=== PATIENT | female | born 1985 | race Caucasian/White ===

== ENCOUNTER 2017-03-30 20:17 | Emergency (ER) | payer OTHER ==
[2017-03-30 20:52] VITALS: RESP 18
--- NOTE | 2017-03-30 21:42 | XR ---
EXAMINATION TYPE: XR abdomen acute w cxr DATE OF EXAM: 03/30/2017 COMPARISON: NONE HISTORY: Bloating and constipation for 9 days TECHNIQUE: 4 views FINDINGS: Heart and mediastinum are normal. Lungs are clear. Diaphragm is normal. Bowel gas pattern is normal. There is no sign of intestinal obstruction or pneumoperitoneum. Fecal pattern is normal. There are no pathologic calcifications over the kidneys. CONCLUSION: Normal exam. Nonacute abdomen. Normal chest.
[2017-03-30] MEDS ORDERED: LACTULOSE 20 GM/30 ML CUP PO ONE (21:48)
[2017-03-30] MEDS ORDERED: BISACODYL 10 MG SUPP RECTAL STA (21:48)
--- NOTE | 2017-03-30 21:49 | ED ---
General Adult HPI - General Chief complaint: Abdominal Pain Stated complaint: Abd Pain Time Seen by Provider: 03/30/17 20:58 Source: patient Mode of arrival: ambulatory Limitations: no limitations - History of Present Illness Initial comments: Barbie Lee is a 32-year-old female with a past medical history of alcohol abuse who is currently in rehab. She presents to the emergency department today for evaluation of abdominal distention and constipation. Patient reports that she's been sober from alcohol for 6 months, she recently had one drink while in a long-term house and was referred back to rehab. Patient reports that she's been back in rehab for couple of weeks it has been sober. Patient reports that for the past 12 days she has been very constipated. She reports that she has not had a normal large bowel movement in 12 days. She reports that she was evaluated at an outside hospital on Tuesday, all of her labs were normal and her x-ray revealed diffuse stool throughout the colon. She was given MiraLAX and discharged home. Patient reports that on Tuesday she also drink Epsom salts and water and she did have a small bowel movement but she didn 't feel any relief. Patient reports that since that time she has been drinking prune juice and MiraLAX, she states she is beginning to feel more bloated and more pressure in her abdomen but does not feel like she has had an appropriate bowel movement. Patient reports that her last menses was last week, and addition she has her tube site and there is no chance she is . She denies any stabbing abdominal pain. She denies any nausea or vomiting. She does report decreased appetite which she attributes to abdominal distention. She is no history of irritable or inflammatory bowel. She has no known family history of either. She does report that her grandmother at the age of 45 from some type of bowel disease. Patient reports tubal ligation but no other intra-abdominal surgeries. She has no history of bowel obstruction. - Related Data Home Medications Medication Instructions Recorded Confirmed Docusate [Colace] 100 mg PO BID 03/30/17 03/30/17 Methadone HCl [Methadone Intensol] 90 mg PO DAILY 03/30/17 03/30/17 Multivitamins, Thera [Multivitamin 1 tab PO DAILY 03/30/17 03/30/17 (formulary)] Polyethylene Glycol 3350 [Miralax] 17 gm PO TID 03/30/17 03/30/17 QUEtiapine [SEROquel] 50 mg PO HS 03/30/17 03/30/17 buPROPion [Wellbutrin] 100 mg PO BID 03/30/17 03/30/17 Allergies Allergy/AdvReac Type Severity Reaction Status Date / Time No Known Allergies Allergy Verified 03/30/17 20:57 Review of Systems ROS Statement: Those systems with pertinent positive or pertinent negative responses have been documented in the HPI. ROS Other: All systems not noted in ROS Statement are negative. Respiratory: Denies: cough Cardiovascular: Denies: chest pain Endocrine: Denies: fatigue Gastrointestinal: Reports: constipation. Denies: nausea, vomiting, diarrhea Genitourinary: Denies: urgency, dysuria Musculoskeletal: Denies: back pain Skin: Denies: rash, lesions Neurological: Denies: headache Hematological/Lymphatic: Denies: easy bleeding, easy bruising Past Medical History Past Medical History: No Reported History History of Any Multi-Drug Resistant Organisms: None Reported Past Surgical History: Tubal Ligation Past Psychological History: Depression Smoking Status: Current every day smoker Past Alcohol Use History: None Reported Past Drug Use History: Heroin General Exam Limitations: no limitations General appearance: alert, in no apparent distress Head exam: Present: atraumatic, normocephalic Eye exam: Present: normal appearance, PERRL ENT exam: Present: normal exam Neck exam: Present: normal inspection Respiratory exam: Present: normal lung sounds bilaterally Cardiovascular Exam: Present: regular rate GI/Abdominal exam: Present: soft, distended, normal bowel sounds. Absent: tenderness, guarding, rebound, rigid, diminished bowel sounds, hyperactive bowel sounds, hypoactive bowel sounds, organomegaly, mass, bruit, pulsatile mass , hernia Rectal exam: Present: deferred Extremities exam: Present: normal inspection Back exam: Present: normal inspection Neurological exam: Present: alert, oriented X3 Psychiatric exam: Present: normal affect Skin exam: Present: warm, dry Course Vital Signs 03/30/17 03/30/17 20:50 22:44 Temperature 97.5 F L 98 F Pulse Rate 84 77 Respiratory 18 18 Rate Blood Pressure 147/79 139/79 O2 Sat by Pulse 97 97 Oximetry Medical Decision Making - Medical Decision Making Patient was seen and examined, vital signs reviewed History obtained from patient At this time the patient's declining blood work is she says all of her blood work was normal on Tuesday. She states that she just wants something to help her have a bowel movement. Patient will agree to a x-ray of the abdomen to evaluate for stool burning. Patient states that she has had a tubal ligation, and addition her last menses ended last week and there is no possibility of her being . X-ray with stool throughout the colon, normal x-ray Dulcolax suppository was ordered in addition to lactulose Patient tolerated the Dulcolax suppository and lactulose. I advised her to increase her water intake and to continue normal activity. I advised her to follow up with regular doctor for reevaluation and to discuss referral to gastroenterology for colonoscopy. All questions pertaining to care were answered to the best my ability and the patient was discharged home in stable condition. Disposition Clinical Impression: Abdominal pain Disposition: HOME SELF-CARE Condition: Good Instructions: Constipation (ED), High Fiber Diet (ED), Fleet Enema (ED) Referrals: Nonstaff,Physician [Primary Care Provider] - 1-2 days Time of Disposition: 22:26
[2017-03-30 22:45] VITALS: BP 139/79; PULSE 77; TEMP 98
== END 2017-03-30 22:45 | disposition home or self-care (01) ==
LOC: EC 20:17
DX: R10.9 Unspecified abdominal pain (principal); F32.9 Major depressive disorder, single episode, unspecified; F17.200 Nicotine dependence, unspecified, uncomplicated; Z98.51 Tubal ligation status; Z79.891 Long term (current) use of opiate analgesic; Z79.899 Other long term (current) drug therapy
CPT/HCPCS: 74022; 99284

== ENCOUNTER → 2018-03-14 | Outpatient (CLI) | payer OTHER ==
[2018-03-14 09:06] VITALS: BP 132/62; PULSE 78; RESP 18; TEMP 98.2; BMI 30.2
--- NOTE | 2018-03-14 10:13 | P.HPOB ---
History of Present Illness H&P Date: 03/14/18 Chief Complaint: The patient is here for her routine gynecologic exam. This is a 33-year-old with an LMP of 02/06/2018. The patient is here to establish with this office. She states that has been about 3 years since her last pelvic exam. She states she has noticed intermittent postcoital vaginal bleeding during the past 2 months. She denies ever having this before 2 months ago. She has been with her current sexual partner for about 7 months. She denies any pain with sexual intercourse. She states the bleeding can be variable. One time it was fairly heavy, and at other times it is very light. She has only noticed this with one sexual position which has been with the rear entry when she is bent over. She denies any significant vaginal discharge, but has noticed a slight vaginal odor recently. She denies any vulvar lesions. She states she tends to notice the bleeding after sexual intercourse near or just after her menstrual period. Review of Systems She believes she has gained about 30 pounds while she has been on methadone. She states she has been on methadone for about 4 years. She attributes the weekend to the methadone use. She denies respiratory, cardiac, or G.I. problems. 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 She denies any other STDs. History of Any Multi-Drug Resistant Organisms: None Reported Past Surgical History: Tubal Ligation () Past Psychological History: Depression Smoking Status: Current every day smoker (Half a pack per day) Past Alcohol Use History: None Reported Past Drug Use History: Cocaine, Heroin, Opiates Additional Drug Use History / Comment(s): She had a history of cocaine in opiate abuse and has been in rehab since 2017. She states she has been drug- free since 2017. She currently lives in recovery housing. She is single and has been with her boyfriend since 2018. She works at [employer]. - Past Family History Mother Additional Family Medical History / Comment(s): History of drug addiction. Great-grandmother had diabetes. Father Additional Family Medical History / Comment(s): History of drug addiction. Medications and Allergies Home Medications Medication Instructions Recorded Confirmed Type Methadone HCl [Methadone Intensol] 90 mg PO DAILY 03/30/17 03/14/18 History Allergies Allergy/AdvReac Type Severity Reaction Status Date / Time No Known Allergies Allergy Verified 03/14/18 08:59 Exam Vital Signs Temp Pulse Resp BP Pulse Ox 03/14/18 09:01 98.2 F 78 18 132/62 99 Intake and Output 03/13/18 03/14/18 03/14/18 22:59 06:59 14:59 Other: Weight 79.832 kg Height 5'4", weight 176 pounds, BMI 30.2. This is a well-developed well-nourished white female who is alert and oriented times 3 in no acute distress. HEENT: Within normal limits. NECK: Supple without mass or thyromegaly. CHEST AND LUNGS: Clear to auscultation. HEART: Regular rate and rhythm. BREASTS: Are without mass or discharge. AXILLARY EXAM: Negative for adenopathy. BACK: Negative for CVA tenderness. ABDOMEN: Soft, nontender, without palpable masses. PELVIC EXAM: Normal external genitalia. Cervix appears normal but is slightly friable upon doing the Pap smear. There is a mild creamy discharge which is slightly yellow without noticeable odor. There is no cervical motion tenderness. There are no vaginal lesions. There is no evidence of prolapse. The uterus is midposition, nongravid size and nontender. There are no palpable adnexal masses or tenderness. RECTAL EXAM: rectal exam was refused by the patient. EXTREMITIES: Nontender. IMPRESSION: 1. 33-year-old female who is status post tubal sterilization with probable bacterial vaginosis with slight discharge and complaints of slight vaginal odor. 2. Intermittent postcoital vaginal bleeding with one particular sexual position times 2 months. This may be related to bacterial vaginosis or other cervicitis. PLAN: 1. Pap smear was performed. 2. Self breast awareness was discussed with the patient. 3. GC and Chlamydia testing was obtained from the cervix. 4. The patient will be treated for suspected bacterial vaginosis. Metronidazole 500 mg PO BID times 7 days. The electronic prescription will be sent to [facility] on . 5. If the above testing is unremarkable and she continues to have postcoital spotting, consider pelvic ultrasound and possible referral for additional evaluation such as a hysteroscopy. 6. She will return in one year and PRN.
[2018-03-15 14:31] LABS: C. trachomatis,PCR Negative (Neg,Equiv); Chlamydia trachomatis Source Cervix; N. gonorrhoeae,PCR Negative (Neg,Equiv); Neisseria Source Cervix
== END | disposition home or self-care (01) ==
LOC: WWCWWP 08:33
PROVIDERS: ATTEND Obstetrics & Gynecology
DX: N93.9 Abnormal uterine and vaginal bleeding, unspecified (principal); Z11.9 Encounter for screening for infectious and parasitic diseases, unspecified
CPT/HCPCS: 87491; 87591

== ENCOUNTER → 2020-06-24 | Outpatient (CLI) | payer OTHER ==
--- NOTE | 2020-06-24 15:37 | MR ---
MR brain without contrast HISTORY: Migraine headache with aura Multiplanar multisequence imaging through the brain, no comparisons There is no restricted diffusion. There is no hemorrhage or hydrocephalus. Corpus callosum, pituitary , cervical medullary junction, cerebellopontine angles are unremarkable. There is some scattered hype rintensities within the deep white matter on inversion recovery T2-weighted sequences, approximately 3-5 lesions are present, largest measures only 3 mm. Some mucosal thickening present within the front al sinus, ethmoid air cells. Orbits show symmetric appearance. There is a focus of hyperintensity adj acent to the right temporomandibular joint showing intermediate signal on inversion recovery, increas ed signal on T2-weighted sequences measuring approximately 6 mm, axial image 5 of questionable clinic al significance, possibly related to the joint at IMPRESSION: Nonspecific white matter demyelination could be related to migraine headaches, nonspecifi c. Mild sinus disease. Additional findings above.
== END | disposition home or self-care (01) ==
LOC: RADMRIMAIN 14:42
PROVIDERS: ATTEND Psychiatry & Neurology Neurology
DX: G43.109 Migraine with aura, not intractable, without status migrainosus (principal); R90.82 White matter disease, unspecified
CPT/HCPCS: 70551

== ENCOUNTER 2020-09-27 21:16 | Emergency (ER) | payer OTHER ==
[2020-09-27 21:30] VITALS: BP 137/69; PULSE 73; RESP 20; TEMP 98.7
[2020-09-27] MEDS ORDERED: FAMOTIDINE 20 MG TAB PO STA (21:50)
[2020-09-27] MEDS ORDERED: hydrOXYzine HCL 25 MG TAB PO STA (21:50)
[2020-09-27] MEDS ORDERED: DEXAMETHASONE SOD PHOSPHATE 10 MG/ML 1 ML VIAL IM STA (21:50)
--- NOTE | 2020-09-27 21:52 | ED ---
Skin/Abscess/FB HPI - General Chief complaint: Skin/Abscess/Foreign Body Stated complaint: Bug bite Time Seen by Provider: 09/27/20 21:43 Source: patient, RN notes reviewed, old records reviewed Mode of arrival: wheelchair Limitations: no limitations - History of Present Illness Initial comments: This is a 35-year-old female who presents today for evaluation of significant swelling pain and itchiness of the right foot. Patient states he wears sandals and was unsure whether or not she pressed up against something that causes reaction where she was bit by some sort of bug. Pain is on the top of her foot with swelling and erythema and some blistering now. Patient states the blistering has caused pain. Otherwise no complaints MD complaint: rash (2 right foot) -: days(s) (3) Tetanus Up to Date: no Location: R foot Severity: moderate Severity scale (1-10): 7 Quality: aching Consistency: constant Improves with: none Worsens with: none Context: witnessed insect bite Associated symptoms: itching Treatments Prior to Arrival: none - Related Data Home Medications Medication Instructions Recorded Confirmed Methadone HCl [Methadone Intensol] 90 mg PO DAILY 03/30/17 03/14/18 Previous Rx's Medication Instructions Recorded metroNIDAZOLE [Flagyl] 500 mg PO BID 7 Days #14 tab 03/14/18 Cephalexin [Keflex] 500 mg PO Q6HR #28 cap 09/27/20 hydrOXYzine HCL [Atarax] 25 mg PO TID PRN #15 tab 09/27/20 predniSONE 50 mg PO DAILY #5 tab 09/27/20 Allergies Allergy/AdvReac Type Severity Reaction Status Date / Time No Known Allergies Allergy Verified 09/27/20 21:29 Review of Systems ROS Statement: Those systems with pertinent positive or pertinent negative responses have been documented in the HPI. ROS Other: All systems not noted in ROS Statement are negative. 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 She denies any other STDs. COVID 04/06 History of Any Multi-Drug Resistant Organisms: None Reported Past Surgical History: Tubal Ligation Past Psychological History: Depression Smoking Status: Never smoker Past Alcohol Use History: None Reported Past Drug Use History: Cocaine, Heroin, Opiates - Past Family History Mother Additional Family Medical History / Comment(s): History of drug addiction. Great-grandmother had diabetes. Father Additional Family Medical History / Comment(s): History of drug addiction. General Exam Limitations: no limitations General appearance: alert, in no apparent distress Head exam: Present: atraumatic, normocephalic, normal inspection Eye exam: Present: normal appearance, PERRL, EOMI. Absent: scleral icterus, conjunctival injection, periorbital swelling ENT exam: Present: normal exam, mucous membranes moist Neck exam: Present: normal inspection. Absent: tenderness, meningismus, lymphadenopathy Respiratory exam: Present: normal lung sounds bilaterally. Absent: respiratory distress, wheezes, rales, rhonchi, stridor Cardiovascular Exam: Present: regular rate, normal rhythm, normal heart sounds. Absent: systolic murmur, diastolic murmur, rubs, gallop, clicks GI/Abdominal exam: Present: soft, normal bowel sounds. Absent: distended, tenderness, guarding, rebound, rigid Extremities exam: Present: normal inspection, full ROM, normal capillary refill, other (Right foot does have swelling of all toes, middle toe does have blistering bullous reaction, no tenderness). Absent: tenderness, pedal edema, joint swelling, calf tenderness Back exam: Present: normal inspection Neurological exam: Present: alert, oriented X3, CN II-XII intact Psychiatric exam: Present: normal affect, normal mood Skin exam: Present: warm, dry, intact, normal color. Absent: rash Course Vital Signs 09/27/20 21:25 Temperature 98.7 F Pulse Rate 73 Respiratory 20 Rate Blood Pressure 137/69 O2 Sat by Pulse 97 Oximetry - Reevaluation(s) Reevaluation #1: 09/27/20 23:48 Medical record is reviewed Reevaluation #2: 09/27/20 23:48 Patient's blisters were debrided here in the ER Reevaluation #3: 09/27/20 23:48 Patient informed results and treatment plan, questions answered Medical Decision Making - Medical Decision Making 35 female to the ER for evaluation, patient does have ALLERGIC reaction or bug bite of her right foot. Patient does have blisters which are provided here in the ER, symptoms are improved patient will place on antibiotics for possible cellulitis at 3 days since initial symptoms Disposition Clinical Impression: Bug bite, Allergic reaction, Cellulitis Disposition: HOME SELF-CARE Condition: Good Instructions (If sedation given, give patient instructions): Cellulitis (ED), Insect Bite or Sting (ED) Prescriptions: hydrOXYzine HCL [Atarax] 25 mg PO TID PRN #15 tab PRN Reason: Itching Cephalexin [Keflex] 500 mg PO Q6HR #28 cap predniSONE 50 mg PO DAILY #5 tab Is patient prescribed a controlled substance at d/c from ED?: No Referrals: Elizabeth Webb MD [Primary Care Provider] - 1-2 days
== END 2020-09-27 22:10 | disposition home or self-care (01) ==
LOC: EC 21:16
DX: S90.861A Insect bite (nonvenomous), right foot, initial encounter (principal); T78.40XA Allergy, unspecified, initial encounter; L03.115 Cellulitis of right lower limb; W57.XXXA Bitten or stung by nonvenomous insect and other nonvenomous arthropods, initial encounter
CPT/HCPCS: 99283; 96372; J1100

== ENCOUNTER → 2024-08-14 | Outpatient (CLI) | payer OTHER ==
--- NOTE | 2024-08-14 15:26 | CT ---
EXAMINATION TYPE: CT chest wo con CT DLP: 352.20 mGycm, Automated exposure control for dose reduction was used. DATE OF EXAM: 08/14/2024 9:56 AM COMPARISON: Chest radiograph 07/06/2024 CLINICAL INDICATION:Female, 39 years old with history of J44.1 COPD; [facility], Checking to see if vapeing has damaged lungs, has COPD. TP TECHNIQUE: Multiple axial images were obtained through the chest without IV contrast. Lack of IV or o ral contrast limits evaluation of solid and hollow organ viscera. . Coronal and sagittal reformats re viewed. FINDINGS: LUNGS/ PLEURA: The lung parenchyma appears unremarkable. No pleural effusion, pneumothorax, focal con solidation. No emphysematous changes. No suspicious pulmonary nodule or mass. AIRWAY: Patent and unremarkable.. HEART: Size within normal limits. . No pericardial effusion. No significant coronary artery calcifica tions. MEDIASTINUM: No gross evidence of adenopathy. Residual thymic tissue. VASCULATURE: No aortic aneurysm. MUSCULOSKELETAL: Healing nondisplaced left anterior lateral fifth through ninth rib fractures with ca llus formation. No segmental fractures. Fracture lines are still visible. SOFT TISSUES/LYMPH NODES: Unremarkable. LOWER NECK: No significant findings. UPPER ABDOMEN: No significant findings. IMPRESSION: 1. Healing nondisplaced left-sided anterior lateral fifth through ninth rib fractures with callus fo rmation. Fracture lines are still visible. No evidence of pleural effusion or pneumothorax. Correlate with prior history of trauma. 2. The lungs appear unremarkable without evidence for emphysematous change. [facility], , 08/14/2024 3:24 PM
== END | disposition home or self-care (01) ==
LOC: RADCTMAIN 09:39
PROVIDERS: ATTEND Student in an Organized Health Care Education/Training Program
DX: S22.42XD Multiple fractures of ribs, left side, subsequent encounter for fracture with routine healing (principal); J44.1 Chronic obstructive pulmonary disease with (acute) exacerbation
CPT/HCPCS: 71250